=== PATIENT | female | born 1995 | race American Indian/Alaskan Native ===

== ENCOUNTER 2018-06-22 17:50 | Outpatient (CLI) | payer OTHER ==
[2018-06-22] MEDS ORDERED: PRENATAL FORMU1 EAC1 PO (18:35)
[2018-06-22] MEDS ORDERED: PEPCID AC20 MG PO (22:12)
[2018-06-22] MEDS ORDERED: ZOFRAN ODT4 MG SL (22:12)
== END 2018-06-22 18:29 | disposition still patient (30) ==
LOC: OBS/DEL 17:50
DX: O26.892 Other specified pregnancy related conditions, second trimester (principal); K29.60 Other gastritis without bleeding; E86.0 Dehydration; Z34.82 Encounter for supervision of other normal pregnancy, second trimester

== ENCOUNTER 2018-06-22 18:34 | Emergency (ER) | payer OTHER ==
[~2018-06-22] VITALS: Ht 157.5 cm; Wt 63.5 kg
[2018-06-22] MEDS ORDERED: PRENATAL FORMU1 EAC1 PO (18:35)
[2018-06-22] MEDS ORDERED: ZOFRAN ODT4 MG SL (22:12)
[2018-06-22] MEDS ORDERED: PEPCID AC20 MG PO (22:12)
== END 2018-06-22 22:19 | disposition home or self-care (01) ==
LOC: ER
DX: K29.70 Gastritis, unspecified, without bleeding (principal); E86.0 Dehydration

== ENCOUNTER 2018-11-09 03:06 | Outpatient (CLI) | payer OTHER ==
[~2018-11-09 03:06] MED LIST: PEPCID AC20 MG PO; PRENATAL FORMU1 EAC1 PO; ZOFRAN ODT4 MG SL
== END 2018-11-09 11:17 | disposition home or self-care (01) ==
LOC: OBS/DEL 03:06
DX: O47.1 False labor at or after 37 completed weeks of gestation (principal); Z34.83 Encounter for supervision of other normal pregnancy, third trimester

== ENCOUNTER 2018-11-14 07:57 | Inpatient (IN) | payer OTHER ==
[~2018-11-14] VITALS: Ht 157.5 cm; Wt 73.9 kg
== END 2018-11-16 17:36 | disposition home or self-care (01) | DRG 807 ==
LOC: OB/GYN 07:57 → LDR 07:57 → OB/GYN 22:01
PROVIDERS: ADMIT Obstetrics & Gynecology Obstetrics
PROC: 10E0XZZ Delivery of Products of Conception, External Approach (ICD-10-PCS; principal; 2018-11-14)
PROC: 0W8NXZZ Division of Female Perineum, External Approach (ICD-10-PCS; 2018-11-14)
PROC: 4A1HXCZ Monitoring of Products of Conception, Cardiac Rate, External Approach (ICD-10-PCS; 2018-11-14)
DX: O80 Encounter for full-term uncomplicated delivery (principal); Z37.0 Single live birth; Z3A.39 39 weeks gestation of pregnancy; Z22.330 Carrier of Group B streptococcus